=== PATIENT | male | born 1960 | race African-American/Black ===

== ENCOUNTER 2017-05-26 22:12 | Emergency (ER) | payer SELFPAY ==
[2017-05-26 22:20] VITALS: RESP 16; TEMP 98.4; O2SAT 97
[2017-05-26] MEDS ORDERED: IBUPROFEN 600 MG TAB PO ONE (22:27)
--- NOTE | 2017-05-26 23:12 | EDPHY ---
H & P Stated Complaint: R knee pain, swelling. Time Seen by Provider: 05/26/17 22:23 HPI/ROS: Chief Complaint: Knee pain and swelling HPI: 56-year-old male developed right knee pain today and noticed the swelling. 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 No falls or injuries. No prior knee pain in the past. No redness. No fevers or chills. He has been able to ambulate with some discomfort. ROS: 10 point Review of Systems is negative except as noted in the HPI. PMH: Denies Social History: No smoking, no alcohol, no recreational drug use Family History: non-contributory Physical Exam: Gen: Awake, Alert, No Distress HEENT: Nose: no rhinorrhea Eyes: PERRLA, EOMI Mouth: Moist mucosa Neck: Supple, no JVD Chest: nontender, lungs clear to auscultation Heart: S1, S2 normal, no murmur Abd: Soft, non-tender, no guarding Back: no CVA tenderness, no midline tenderness Ext: Right leg, mild knee swelling. Mild effusion, is not warm to touch. He has some tenderness along the lateral collateral ligaments. No proximal tibial tenderness. No patellar tenderness. No distal femur tenderness. Full range of motion of pain. No anterior drawer sign. No pain with loading of the medial lateral meniscus. Skin: no rash Neuro: CN II-XII intact, Sensation grossly intact, Strength 5/5 in bilateral upper and lower extremities - Personal History Current Tetanus/Diphtheria Vaccine: Yes Current Tetanus Diphtheria and Acellular Pertussis (TDAP): Yes - Medical/Surgical History Hx Asthma: No Hx Chronic Respiratory Disease: No Hx Diabetes: No Hx Cardiac Disease: No Hx Renal Disease: No Hx Cirrhosis: No Hx Alcoholism: No Hx HIV/AIDS: No Hx Splenectomy or Spleen Trauma: No Other PMH: Denies. - Social History Smoking Status: Never smoked Constitutional: Initial Vital Signs Temperature (C) 36.9 C 05/26/17 22:15 Heart Rate 77 05/26/17 22:15 Respiratory Rate 16 05/26/17 22:15 Blood Pressure 119/77 05/26/17 22:15 O2 Sat (%) 97 05/26/17 22:15 O2 Delivery Mode Room Air Allergies/Adverse Reactions: chloroquine Allergy (Verified 05/26/17 22:20) Home Medications: Medication Instructions Recorded NK [No Known Home Meds] 05/26/17 Medical Decision Making - Diagnostics Imaging Results: Imaging Impressions Knee X-Ray 05/26/17 22:27 Impression: Negative for fracture. ED Course/Re-evaluation: Knee x-rays negative. Symptoms consistent with the sprain with mild effusion. There are no findings suggestive of septic joint. Is not warm to touch. There is no erythema. He has full range of motion. Will discharge with follow-up with primary care as an outpatient, return for any concerns. - Data Points Medications Given: Discontinued Medications Ibuprofen (Motrin) 600 mg PO EDNOW ONE Stop: 05/26/17 22:28 Last Admin: 05/26/17 22:46 Dose: 600 mg Departure - Departure Disposition: Home, Routine, Self-Care Clinical Impression: Knee pain Condition: Good Instructions: Swollen Knee Joint (ED), Knee Pain (ED), R.I.C.E. Treatment (ED) Additional Instructions: Alternate acetaminophen (1000 mg) with ibuprofen (400 mg) every 4 hours as needed for pain. Follow up with primary care physician in 4-5 days if symptoms are not improving. Referrals: [facility],. [Clinic] - As per Instructions
[2017-05-26 23:22] VITALS: BP 116/70; PULSE 72
== END 2017-05-26 23:22 | disposition home or self-care (01) ==
DX: M25.561 Pain in right knee (principal)